=== PATIENT | male | born 1960 | race Caucasian/White ===

== ENCOUNTER 2016-11-06 14:58 | Inpatient (IN) | payer OTHER ==
[~2016-11-06] VITALS: Ht 185.4 cm; Wt 104.5 kg
[2016-11-06] VITALS (7 sets, daily range): BP systolic 126–153; BP diastolic 80–106; PULSE 100–150; RESP 16–18; O2SAT 90–95
[~2016-11-06 14:58] MED LIST: ASPI325T32 PO; FOLI-89 PO; IPRA4AER IH; LEVO750T39 PO
--- NOTE | 2016-11-06 15:36 | ED.REPORT ---
HPI-General Illness Date of Service Nov 06, 2016 ED Provider: Adan Guerrero MD Patient is a 56 year old male with a hx of EtOH abuse who presents to the ED via EMS for EtOH withdrawal. His last drink was at 1700 last night. He drank 1 liter of liquor a day for 2 yrs. Associated symptoms include abdominal pain, vomiting, sweats, and headache. He denies suicidal or homicidal ideation, focal weakness, chest pain, or any other symptoms. He has never had seizures associated with alcohol withdrawal. He has had similar symptoms with withdrawal but never this severe. He was admitted 2 years ago to the hospital for similar symptoms. He does not take any daily medications. Nursing Notes Stated Complaint: ALCOHOL WITHDRAWL Chief Complaint: Substance Abuse Nursing Notes Reviewed: Yes Allergies: Coded Allergies: Cat Dander (Verified Allergy, Severe, anaphylaxix, 01/06/15) Dog Dander (Verified Allergy, Severe, anaphylaxis, 01/06/15) No Known Allergies (Verified Allergy, Unknown, 10/05/15) Scheduled Aspirin Chew (Aspirin Chew) 81 Mg Chew 81 MG PO DAILY Folic Acid/Multivits-Min/Lut (Multi-Vitamin Gummies) 1 Each Tab.chew 1 EACH PO QAM Scheduled PRN Albuterol/Ipratropium (Combivent Respimat Inhal [place]) 120 Spr/4 Gm Inhaler 1-2 PUFF IH QID PRN PRN For Shortness of Breath Nicotine 21 mg/24 hr Patch (Nicotine 21 mg/24 hr Patch) 1 Each Patch.dysq 1 PATCH TRANSDERM DAILY PRN PRN NICOTINE WITHDRAWAL General Time Seen by MD: 15:22 Chief Complaint Other (EtOH Withdrawal ) Hx Obtained From: Patient Arrived By: Ambulance Sudden in Onset?: Yes Location: : Abdomen Quality: Same as prior Associated with: Reports: Headache Context Related History: Reports Drug use/abuse suspected (EtOH ) Similar Sx Previous: Yes Past Medical History Past Medical History Back Fx Pneumonia Arthritis Reports: GERD Past Surgical History Back surgery Left eye surgery Hernia repair Family History Father DM Mother HTN Smoking History Current Every Day Smoker Social History Alcohol Use: >5 per day Drug Use: Denies drug use Other Social History: Local resident Ambulatory Status Independent Review of Systems Full Review of Systems Cardiovascular: Denies: Chest pain GI: Reports: Abdominal pain, Vomiting Skin: Reports Diaphoresis Neurologic: Reports: Headache, Denies: Weakness Psychiatric: Denies: Homicidal ideation, Suicidal ideation Complete sys rev & neg: except as marked. Physical Exam Nursing note and vitals reviewed. Constitutional: Uncomfortable appearing middle-aged male sitting up in bed, mildly diaphoretic. Head: Normocephalic and atraumatic. Mouth/Throat: Oropharynx is clear and moist. No oropharyngeal exudate. Eyes: EOM are normal. Pupils are equal, round, and reactive to light. Neck: Supple, no tracheal deviation. Cardiovascular: Tachycardic, regular rhythm. Equal and intact distal pulses throughout. Pulmonary/Chest: Effort normal and breath sounds normal. No respiratory distress. Abdominal: Soft. No distension. There is no tenderness, rebound, or guarding. Bowel sounds present. Musculoskeletal: Range of motion grossly intact, moving all extremities. No edema or tenderness appreciated. Neurological: AOx3. Grossly nonfocal exam. Strength and sensation intact and equal to bilateral upper and lower extremities. Tremulous. Skin: Warm and moist; mildly diaphoretic. No rashes or pallor appreciated. Psychiatric: Appropriate mood and affect. Behavior appears normal. Good insight. Denies SI and HI. Vital Signs Vital Signs Date Time Temp Pulse Resp B/P Pulse Ox O2 Delivery O2 Flow Rate FiO2 11/06/16 16:36 36.9 119 17 153/95 95 Nasal Cannula 2 11/06/16 15:09 36.8 150 18 126/95 95 Room Air Interpretation & Diagnostics Lab Results Interpretation Result Diagram: 11/06/16 1505 11/06/16 1505 Test 11/06/16 15:05 11/06/16 17:10 11/06/16 18:02 White Blood Count 11.4th/mm3 (3.8-10.1) Red Blood Count 5.50mil/mm3 (4.40-5.80) Hemoglobin 17.9g/dL (13.8-17.2) Hematocrit 51.2% (41.0-50.0) Mean Corpuscular Volume 93.1fL (81-100) Mean Corpuscular Hemoglobin 32.5pg (27.0-35.0) Mean Corpuscular Hemoglobin Concent 35.0% (32.0-37.0) Red Cell Distribution Width 13.2% (12.3-15.4) Platelet Count 269bil/L (150-400) Neutrophils (%) (Auto) 78.4% (40-74) Lymphocytes (%) (Auto) 11.2% (14-46) Monocytes (%) (Auto) 9.8% (4-12) Eosinophils (%) (Auto) 0% (0-5) Basophils (%) (Auto) 0.5% (0-3) Hold Purple Top Tube Received (Received) Hold Blue Top Tube Received (Received) Sodium Level 137mEq/L (134-144) Potassium Level 4.1mEq/L (3.5-5.2) Chloride Level 90mEq/L (97-108) Carbon Dioxide Level 18mmol/L (18-29) Blood Urea Nitrogen 14mg/dL (6-24) Creatinine 0.94mg/dL (0.76-1.27) Estimat Glomerular Filtration Rate 88mL/min (>59) Glucose Level 137mg/dL (60-99) Calcium Level 10.4mg/dL (8.5-10.1) Total Bilirubin 1.5mg/dL (0.0-1.2) Aspartate Amino Transf (AST/SGOT) 36U/L (0-50) Alanine Aminotransferase (ALT/SGPT) 19U/L (0-44) Alkaline Phosphatase 96U/L (25-150) Total Protein 8.1g/dL (6.4-8.4) Albumin 4.8g/dL (3.4-5.0) Hold [place] Top Tube Received (Received) Hold [place] Top Tube Received (Received) Alcohols < 10mg/dL (0-10) Hold Urine Received (Received) ECG Interpretation ECG Interpretation: Sinus tachy rate 114 Left anterior fascicular block Probable anteroseptal infarct, old Time: 17:24 Interpreted by: ED physician Re-Eval/Medical Decision Med Decision/Clinical Course In summary, 56-year-old male with a history of alcohol abuse presenting to the ED for evaluation of tremulousness and symptoms of alcohol withdrawal. Patient tachycardic to the 140s/150s upon arrival. He has had similar symptoms in the past and is denying any other symptoms that are different from his alcohol withdrawal symptoms. Started on CIWA protocol; discussed with Dr. Casey, who recommended the addition of phenobarbital. He did have some improvement here in the ED. Plan admission for further management and evaluation. Time of Eval: 17:30 Re-Evaluation/Progress Note: Discussed plan for admission. Patient understands and agrees with plan. All questions addressed at this time. Consultation : Referral / Consult Name: Matt Casey MD Call Returned at: 17:49 Aviation Safety Technician: Will see patient, Agrees with eval, Agrees with plan, Accepts admit Note: Discussed pt's case. Accepts admit. Counseled Regarding: Diagnosis, Lab results, Need for admission Discharge & Departure Primary Impression: Alcohol withdrawal Complication of substance-induced condition: uncomplicated Qualified Code: F10.230 - Alcohol dependence with withdrawal, uncomplicated Disposition: ADMITTED TO HOSPITAL Discharge Condition All VS Reviewed: Yes Condition: Stable Referrals: OTHER,PHYSICIAN (PCP) Scribe Attestation Portions of this note were transcribed by Bryan Contreras. I, Dr. Guerrero personally performed the history, physical exam and medical decision-making; I reviewed and confirmed the accuracy of the information in the transcribed note. Signed by: Bryan Contreras 11/06/16, 1759 Adan Guerrero MD Nov 06, 2016 15:36 BRYAN CONTRERAS Nov 06, 2016 17:07
[2016-11-06] MEDS ORDERED: Ondansetron 2 mg/mL 2 mL Inj ONE (15:48)
[2016-11-06] MEDS ORDERED: Thiamine Inj 100 MG, Folic Acid Inj 1 MG, Magnesium Sulfate 50% Inj 2 GM, Multivitamins... IV ONE ×10 (16:05→19:35)
[2016-11-06] MEDS ORDERED: 0.9% Sodium Chloride 1,000 ML IV ONE (16:10)
[2016-11-06] MEDS ORDERED: Alum-Mag Hydrox-Simeth 30 mL Suspension PO ONE (17:15)
[2016-11-06 17:32] LABS: BASOPHILS % (AUTO) 0.5 % (0-3); EOSINOPHILS % (AUTO) 0 % (0-5); MONOCYTES % (AUTO) 9.8 % (4-12); Mean Corpuscular Hemoglobin 32.5 pg (27.0-35.0); Mean Corpuscular Volume 93.1 fL (81-100); NEUTROPHILS % (AUTO) 78.4 % (40-74); Platelet Count 269 bil/L (150-400)
[2016-11-06] MEDS ORDERED: ASPI81TA3 PO (17:34)
[2016-11-06] MEDS ORDERED: NICO1PAT16 TRANSDERM (17:35)
[2016-11-06] MEDS ORDERED: PHENobarbital 65 mg/mL Inj IV ONE (17:55)
--- NOTE | 2016-11-06 19:00 | NUR ---
Admission to [facility] Room 2027 Pt arrived to the room on a gurney and immediately got up and walked to the bathroom where pt had diarrhea. Pt was very shaky on admit. Pt's admit CIWA score was 18 and pt received 10mg of diazepam IVP. Pt is hypertensive. Will continue to monitor pt's BPs.
--- NOTE | 2016-11-06 19:14 | PCM.HPMED ---
Subjective Date of Service Nov 06, 2016 Primary Provider: Admitting Physician: Venessa Wilkins DO Primary Care Physician: Tonya Fuentes PA-C Attending Physician: Venessa Wilkins DO Admit Status: From the Emergency Department Chief Complaint: wishes to stop drinking, nausea, vomiting, diarrhea History of Present Illness: 56yoM with past medical history of alcohol dependence admitted for ETOH withdrawal. Patient states that the last drink he had was 11/05 1700. He normally drinks 1L of 100 proof vodka per day and has been doing so for about 3 years time. This morning he began to have nausea, vomiting and diarrhea and was unable to keep anything PO down. Symptoms are also associated with diffuse abdominal cramping. He denies recent sick contacts and no change in diet, no hematemesis , melena, or hematochezia. He feels a bit lightheaded and unsteady on his feet following admission. At this time he wishes to stop drinking because " I don't ever want to feel like I did this morning." Patient does have a history of ETOH withdrawal but denies any history of withdrawal seizure. Review of Systems: complete review of systems obtained. positive as per HPI otherwise negative Allergies Coded Allergies: Cat Dander (Verified Allergy, Severe, anaphylaxix, 01/06/15) Dog Dander (Verified Allergy, Severe, anaphylaxis, 01/06/15) No Known Allergies (Verified Allergy, Unknown, 10/05/15) Home Medications None PMH Back Fx Pneumonia Arthritis GERD Surgical History Back surgery Left eye surgery Hernia repair Family History Father DM Mother HTN Social History Hx Alcohol Use: Yes (1 liter vodka daily) Hx Substance Use: No Smoking Status: Current Every Day Smoker Exam Vital Signs Vital Sign - Last Date Time Temp Pulse Resp B/P Pulse Ox O2 Delivery O2 Flow Rate FiO2 11/06/16 18:50 36.7 105 18 152/97 95 Nasal Cannula 2 Exam General: Alert, Oriented X3, Cooperative, mild Distress Eyes: PERRLA, Scleral Anicteric Mouth: Mouth Normal, Mucous Membranes Moist/[place] Neck: Supple, no Thyromegaly, trachea central. Chest & Lungs: clear to auscultation bilateral, no wheezes, rales, rhonchi, good resp effort Cardiovascular: Normal S1, Normal S2, No Rubs/Gallops, regular rhythm, tachycardic (No JVD, no peripheral edema) Pulses: Radial (present and equal), Dorsalis Pedi (present and equal) Abdomen: Soft, Non-tender, Non-distended, Normoactive bowel tones. Musculoskeletal: Unremarkable. Normal range of motion, no swollen or erythematous joints Extremities: No edema, no cyanosis, no clubbing. Skin: No rashes. Warm and dry, no erythematous areas Neurological: Grossly neurologically intact, has generalized weakness, Normal Speech, Sensation Intact. tremulous Lymphatic: Lymph nodes Cervical and Axillary not palpable. Lab and Diagnostics Result Diagram: 11/06/16 1505 11/06/16 1505 Assessment & Plan 56yoM with past medical history of alcohol dependence admitted for ETOH withdrawal in the setting of nausea, vomiting, and diarrhea. Alcohol withdrawal, acute, POA -[facility] protocol -banana bag -thiamine / multivitamin Nausea, vomiting, diarrhea -denies hematemesis, hematochezia or melena -likely secondary to gastroenteritis -stool PCR ordered and pending Leukocytosis, acute, POA -likely a/w n/v/d - gastroenteritis in the setting of ETOH withdrawal Elevated Glucose, acute, POA -no h/o diabetes -hgbA1c pending Tobacco dependence, chronic, POA -discussed tobacco cessation -nicotine patch available upon request GERD, chronic, POA -currently taking no medications Pain Evaluation: Adequate Pain Control GI Prophylaxis: Not indicated VTE Prophylaxis: Sub-Q Heparin (Unfractionated) Resuscitation Status: CPR: Attempt Resuscitation Venessa Wilkins DO Nov 06, 2016 19:14
[2016-11-06] MEDS: Ondansetron 2 mg/mL 2 mL Inj IVPUSH PRN (20:03)
[2016-11-06] MEDS: 0.9% Sodium Chloride 1,000 ML IV SCH (20:11)
[2016-11-06] MEDS: Alum-Mag Hydrox-Simeth 30 mL Suspension PO PRN (23:07)
[2016-11-07] VITALS (7 sets, daily range): BP systolic 130–157; BP diastolic 83–109; PULSE 86–96; RESP 16–19; O2SAT 94–97
[2016-11-07] MEDS: Ondansetron 2 mg/mL 2 mL Inj IVPUSH PRN (02:12)
[2016-11-07 03:50] LABS: BASOPHILS % (AUTO) 0.6 % (0-3); EOSINOPHILS % (AUTO) 1.1 % (0-5); MONOCYTES % (AUTO) 12.4 % (4-12); Mean Corpuscular Hemoglobin 32.7 pg (27.0-35.0); Mean Corpuscular Volume 95.7 fL (81-100); NEUTROPHILS % (AUTO) 56.1 % (40-74); Platelet Count 180 bil/L (150-400)
[2016-11-07] MEDS: 0.9% Sodium Chloride 1,000 ML IV SCH ×2 (06:17→18:05)
--- NOTE | 2016-11-07 07:15 | NUR ---
CIWA/BPs Pt's CIWA scores were 18,13,18,12. With each CIWA score pt received 10mg of diazepam IVP. Pt's SBP has continued to remain in the 140s-150s. MD was paged and made aware. Pt has no HTN medication and has never been treated for HTN.
[2016-11-07] MEDS: Heparin 5,000 Unit/mL Inj SUBQ SCH ×2 (07:40→16:27)
[2016-11-07] MEDS: Multivit-Miner-Folic Acid-Iron Tablet PO SCH (07:40)
[2016-11-07] MEDS: Alum-Mag Hydrox-Simeth 30 mL Suspension PO PRN (07:40)
--- NOTE | 2016-11-07 17:24 | NUR ---
CIWA/mentation Pt. has been doing very well today with CIWA scores between 6 and 7. Only positive finding are mild-moderate tremors and mild-moderate headache. Will continue to monitor. Pt has become emotional several times today saying that he feels sorry for how he hurt his family with his alcoholism. I sat and talked with him awhile which seemed to help and pt. verbalizes wanting to try several rehabilitation programs upon discharge. Does not want to speak with flat lock operator at this time.
--- NOTE | 2016-11-07 20:19 | PCM.PNMED ---
Subjective Date of Service Nov 07, 2016 Subjective Patient doing well. Overnight C echeverria were 18, 13, 18, 12. On exam this morning the patient says general sense of malaise, some nausea and vomiting 1, and a little bit of abdominal cramping. His labs was benign. Patient was given phenobarbital on admission as currently getting diazepam. Exam Vital Signs Vital Sign - Last Date Time Temp Pulse Resp B/P Pulse Ox O2 Delivery O2 Flow Rate FiO2 11/07/16 16:25 36.9 96 18 130/93 95 Room Air 11/07/16 03:33 1.50 Intake and Output 11/06/16 11/06/16 11/07/16 Cumulative From/Thru 15:00 23:00 07:00 11/06/16 15:09 - 11/07/16 06:15 Intake Total 1000 ml 600 ml 1600 ml Output Total 1750 ml 1750 ml Balance 1000 ml -1150 ml -150 ml Intake Oral 600 ml 600 ml IV Total 1000 ml 1000 ml Output Urine Total 1750 ml 1750 ml # Voids 4 4 # Bowel Movements 2 2 Exam General: Alert, Oriented X3, Cooperative, mild Distress Chest & Lungs: clear to auscultation bilateral, no wheezes, rales, rhonchi, good resp effort Cardiovascular: Regular rate and rhythm Abdomen: Soft, Non-tender, Non-distended, Normoactive bowel tones. Musculoskeletal: Unremarkable. Normal range of motion, no swollen or erythematous joints Extremities: No edema, no cyanosis, no clubbing. Skin: No rashes. Warm and dry, no erythematous areas Neurological: Grossly neurologically intact, has generalized weakness, Normal Speech, Sensation Intact. tremulous IVs and Medications Medications Reviewed: Medications were reviewed in detail Lab and Diagnostics Result Diagram: 11/07/16 0325 11/07/16 0325 Assessment & Plan 56yoM with past medical history of alcohol dependence admitted for ETOH withdrawal in the setting of nausea, vomiting, and diarrhea. Alcohol withdrawal, acute, POA -Alcoholic who reports drinking 1 L of 100 prove positive daily for 3 years; here to quit drinking -Continue [facility] protocol -Continue daily thiamine / multivitamin Nausea, vomiting, diarrhea; present on admission; stable -denies hematemesis, hematochezia or melena -likely secondary to gastroenteritis -stool PCR ordered and pending Elevated Glucose, acute, POA; resolved -no h/o diabetes -hgbA1c pending Tobacco and alcohol dependence, chronic, POA; stable -discussed tobacco cessation -nicotine patch available upon request GERD, chronic, POA; stable -currently taking no medications -Consider famotidine if needed Leukocytosis, acute, POA; resolved -likely a/w n/v/d - gastroenteritis in the setting of ETOH withdrawal Status: Patient will likely need 1-2 days before discharge. Discussed social work needs for this patient for support quitting Pain Evaluation: Adequate Pain Control GI Prophylaxis: Not indicated VTE Prophylaxis: Sub-Q Heparin (Unfractionated) VTE Mechanical Devices: Venous Foot Pump Resuscitation Status: CPR: Attempt Resuscitation Attending Statement The patient was seen and examined together with Dr. Real on 11/07/2016 and I agree with the history, exam and plan as outlined in the note above. . Trever Real DO Nov 07, 2016 20:19 Matt Casey MD Nov 10, 2016 18:29
[2016-11-07] MEDS: Famotidine Inj 20 MG in IV Premix 1 EACH IV SCH (21:15)
[2016-11-08 02:29] VITALS: BP 142/103; PULSE 80; RESP 16; O2SAT 96
[2016-11-08] MEDS: 0.9% Sodium Chloride 1,000 ML IV SCH (02:34)
[2016-11-08] MEDS: Heparin 5,000 Unit/mL Inj SUBQ SCH ×3 (02:34→16:30)
[2016-11-08] MEDS ORDERED: diphenhydrAMINE 25 mg Capsule PO PRN (03:35)
[2016-11-08 03:45] LABS: BASOPHILS % (AUTO) 1.7 % (0-3); MONOCYTES % (AUTO) 9.6 % (4-12); Mean Corpuscular Hemoglobin 32.9 pg (27.0-35.0); Mean Corpuscular Volume 97.1 fL (81-100); NEUTROPHILS % (AUTO) 38.9 % (40-74); Platelet Count 149 bil/L (150-400)
--- NOTE | 2016-11-08 04:17 | NUR ---
CIWAs/Insomnia/BPs/Respiratory Pt's CIWA score at the beginning of the shift was 1. Pt did begin to become restless and when scored later in the shift the pt scored a 4. Pt did not require diazepam due to CIWA scores. Pt did c/o insomnia and requested benadryl for sleep. was notified and put in the order. Pt took the benadryl along with some tylenol to try and get some sleep. Pt's SBP this shift were 130s-140s. Pt is now able to sat in high 90s on RA.
[2016-11-08 08:48] VITALS: BP 141/106; PULSE 87; RESP 16; O2SAT 97
[2016-11-08] MEDS: Famotidine Inj 20 MG in IV Premix 1 EACH IV SCH (09:16)
[2016-11-08] MEDS: Multivit-Miner-Folic Acid-Iron Tablet PO SCH (09:18)
--- NOTE | 2016-11-08 11:09 | NUR ---
Social Work Note: Screen Note Data& Assessment: EMR reviewed. Phil Ham Jr is a 56 year old male admitted on 11/06/2016 for acute alcohol withdrawal. Pt has [employer] insurance coverage and sees Rafat RODRIGUEZ for primary care. Pt lives in [place] in a hotel and is independent at baseline. Pt is currently independent in his room. Pt was seen by ED SW at time of arrival to offer resources for ETOH tx. Pt declined at that time. However, pt is now interested in more information on outpt resources. Per MD order, SW to follow up with pt regarding Substance Use hx and resources. SW to continue to follow. Plan: Anticipated discharge home via POV when medically ready. SW to follow up with pt regarding Substance Use hx and resources. SW to continue to follow. ZANE Major
[2016-11-08] MEDS ORDERED: chlordiazePOXIDE 25 mg Capsule PO SCH (14:30)
--- NOTE | 2016-11-08 15:27 | NUR ---
CIWA/nicotine patch/previous suicide attempt CIWA score= 5 for mild tremors and headache. Pt states that they are normal for him and at his baseline. Pt states that he drinks "a few stiff drinks" to make the headaches go away. MD ordered Librium for tremors and Imitrex for headaches. After administration, pt states headache is gone but that he feels drowsy. MD to determine if DC appropriate for tonight or not. Pt is wearing a nicotine patch on R shoulder. When asked, pt stated that he did try to commit suicide once "in his 40's" by slitting a knife into his hand. He says that since then, he has never wanted to kill himself and that right now he currently does not want to kill himself nor does he have a plan.
--- NOTE | 2016-11-08 16:43 | NUR ---
Social Work note: Continued Discharge Planning/Substance Use Resources PRODUCT DESIGNER met with pt at bedside to discuss resources and ETOH hx. Pt explained he drinks 1L of 100 proof vodka daily. Pt states he is motivated to stop drinking and remain sober and plans to go to sober living. SW provided pt with list of all local [facility]. [place] and [place] locations due not have any openings. SW left a voicemail and request to call back to [place] location. Pt plans to call himself and request to be place on wait list himself as well. Pt provided with detox information if pt requires detox again in the future, crisis line information and outpt tx information. Pt declined PRODUCT DESIGNER offer to arrange outpt tx for him at this time. Pt denies any thoughts of harming himself or others or any suicidal ideation. Pt denies any other needs. SW to continue to follow. Plan: Anticipated discharged home via POV when medically ready. CD resources provided. Pt denies any other needs. SW to continue to follow. ZANE Major
--- NOTE | 2016-11-08 18:27 | PCM.DIMED ---
Rashawn Ferguson DO 11/08/16 1827: Discharge Instructions Date of Service Nov 08, 2016 Dates of Hospitalization Nov 06, 2016 at 18:24 Discharge Diagnosis Discharge Diagnosis EtOH withdrawl Medication Instructions Additional med instructions 1 pill Librium 25 mg (chlordiazepoxide) should be taken only as needed (maximum 3 times in a day) for the next 2-3 days for symptomatic relief of alcohol withdrawl and then stopped. One pill of Maxalt 10 mg should be taken as needed to abort a headache. You may repeat another pill after 2 hours if headache has not improved. Do not exceed more than 3 pills in a 24 hour period. Diet Discharge Diet: Heart Healthy Activity Discharge Activity: No restrictions Call your provider Call your provider for: Shortness of breath, Vomitting, Excessive diarrhea, Other (withdrawl symptoms such as visual or auditory hallucinations, sweating, disorientation, tremor, agitation or anxiety.) Patient Instructions Patient Instructions Follow up with your primary care physician within the next week. Discuss the use of maxalt for headaches. If your alcohol withdrawls symptoms come back such as sweating, tremors, agitation, nausea/vomiting or hallucinations, take librium as needed. Try to call around to different [facility] to find out if there is a vacancy. If you do have a relapse, try to get in touch with crisis respit. Follow-up Provider: Tonya Fuentes PA-C Follow-up with PCP in: 1 week Matt Casey MD 11/10/16 1830: Discharge Instructions Attending's Statement The patient was seen and examined together with Dr. Ferguson on 11/08/2016 and I agree with the history, exam and plan as outlined in the note above. . Rashawn Ferguson DO Nov 08, 2016 18:27 Matt Casey MD Nov 10, 2016 18:30
[2016-11-08] MEDS ORDERED: RIZA10TA26 PO (18:31)
[2016-11-08] MEDS ORDERED: CHLO25CA10 PO (18:31)
--- NOTE | 2016-11-08 19:17 | PCM.DC.MED ---
Discharge Summary Date of Service Nov 08, 2016 Dates of Hospitalization Date of Hospital Admission Nov 06, 2016 at 18:24 Date of Discharge: Nov 08, 2016 Providers: Admitting Physician: Matt Casey MD Primary Care Physician: Tonya Fuentes PA-C Attending Physician: Matt Casey MD Diagnosis at Time of Discharge Diagnosis at Time of Discharge EtOH withdrawl Brief History 56yoM with past medical history of alcohol dependence self-admitted for ETOH withdrawal. Patient states that the last drink he had was 11/05 1700. He normally drinks 1L of 100 proof vodka per day and has been doing so for about 3 years time. Since admission his nausea, vomiting and diarrhea have improved and is now stable. Hospital Course Alcohol withdrawal, acute, POA - Alcoholic who reports drinking 1 L of 100 prove positive daily for 3 years; successfully weened off ETOH. - Received daily thiamine / multivitamin Nausea, vomiting, diarrhea; present on admission; stable -denies hematemesis, hematochezia or melena -likely secondary to gastroenteritis -stool PCR ordered and pending Elevated Glucose, acute, POA; resolved -no h/o diabetes -hgbA1c, follow up with results as an outpatient. Tobacco and alcohol dependence, chronic, POA; stable - discussed tobacco cessatio GERD, chronic, POA; stable -Consider famotidine if needed as an outpatient. Leukocytosis, acute, POA; resolved -likely a/w n/v/d - gastroenteritis in the setting of ETOH withdrawal Exam Vital Signs (Last) Date Time Temp Pulse Resp B/P Pulse Ox O2 Delivery O2 Flow Rate FiO2 11/08/16 08:48 36.9 87 16 141/106 97 Room Air 11/07/16 03:33 1.50 Exam General: Alert, Oriented X3, Cooperative, mild Distress Eyes: PERRLA, Scleral Anicteric Mouth: Mouth Normal, Mucous Membranes Moist/[place] Neck: Supple, no Thyromegaly, trachea central. Chest & Lungs: clear to auscultation bilateral, no wheezes, rales, rhonchi, good resp effort Cardiovascular: Normal S1, Normal S2, No Rubs/Gallops, regular rhythm, tachycardic (No JVD, no peripheral edema) Pulses: Radial (present and equal), Dorsalis Pedi (present and equal) Abdomen: Soft, Non-tender, Non-distended, Normoactive bowel tones. Musculoskeletal: Unremarkable. Normal range of motion, no swollen or erythematous joints Extremities: No edema, no cyanosis, no clubbing. Skin: No rashes. Warm and dry, no erythematous areas Neurological: Grossly neurologically intact, has generalized weakness, Normal Speech, Sensation Intact. tremulous Lymphatic: Lymph nodes Cervical and Axillary not palpable. Test 11/06/16 15:05 11/06/16 17:10 11/06/16 18:02 11/08/16 03:25 Hold Purple Top Tube Received (Received) Hold Blue Top Tube Received (Received) Hold [place] Top Tube Received (Received) Hold [place] Top Tube Received (Received) Alcohols < 10mg/dL (0-10) Hold Urine Received (Received) White Blood Count 4.7th/mm3 (3.8-10.1) Red Blood Count 4.47mil/mm3 (4.40-5.80) Hemoglobin 14.7g/dL (13.8-17.2) Hematocrit 43.4% (41.0-50.0) Mean Corpuscular Volume 97.1fL (81-100) Mean Corpuscular Hemoglobin 32.9pg (27.0-35.0) Mean Corpuscular Hemoglobin Concent 33.9% (32.0-37.0) Red Cell Distribution Width 12.8% (12.3-15.4) Platelet Count 149bil/L (150-400) Neutrophils (%) (Auto) 38.9% (40-74) Lymphocytes (%) (Auto) 46.8% (14-46) Monocytes (%) (Auto) 9.6% (4-12) Eosinophils (%) (Auto) 3.0% (0-5) Basophils (%) (Auto) 1.7% (0-3) Sodium Level 139mEq/L (134-144) Potassium Level 3.8mEq/L (3.5-5.2) Chloride Level 100mEq/L (97-108) Carbon Dioxide Level 25mmol/L (18-29) Blood Urea Nitrogen 9mg/dL (6-24) Creatinine 0.75mg/dL (0.76-1.27) Estimat Glomerular Filtration Rate 114mL/min (>59) Glucose Level 96mg/dL (60-99) Calcium Level 9.2mg/dL (8.5-10.1) Total Bilirubin 0.8mg/dL (0.0-1.2) Aspartate Amino Transf (AST/SGOT) 25U/L (0-50) Alanine Aminotransferase (ALT/SGPT) 14U/L (0-44) Alkaline Phosphatase 68U/L (25-150) Total Protein 6.1g/dL (6.4-8.4) Albumin 3.6g/dL (3.4-5.0) Discharge Medications Discharge Medications Aspirin Chew (Aspirin Chew) 81 Mg Chew 81 MG PO DAILY (Reported) Chlordiazepoxide (Chlordiazepoxide) 25 Mg Capsule 25 MG PO TID Prescribed by: LESLI ALEJANDRA Folic Acid/Multivits-Min/Lut (Multi-Vitamin Gummies) 1 Each Tab.chew 1 EACH PO QAM (Reported) As needed Albuterol/Ipratropium (Combivent Respimat Inhal [place]) 120 Spr/4 Gm Inhaler 1-2 PUFF IH QID PRN PRN For Shortness of Breath (Reported) Nicotine 21 mg/24 hr Patch (Nicotine 21 mg/24 hr Patch) 1 Each Patch.dysq 1 PATCH TRANSDERM DAILY PRN PRN NICOTINE WITHDRAWAL (Reported) Rizatriptan (Maxalt) 10 Mg Tablet 10 MG PO TID PRN PRN Headache Prescribed by: LESLI ALEJANDRA, Additional med instructions 1 pill Librium 25 mg (chlordiazepoxide) should be taken only as needed (maximum 3 times in a day) for the next 2-3 days for symptomatic relief of alcohol withdrawl and then stopped. One pill of Maxalt 10 mg should be taken as needed to abort a headache. You may repeat another pill after 2 hours if headache has not improved. Do not exceed more than 3 pills in a 24 hour period. Followup Plan Follow-up plan Follow up with your primary care physician in 1-2 weeks. Discharge Diet: Heart Healthy Discharge Activity: No restrictions Patient Instructions Follow up with your primary care physician within the next week. Discuss the use of maxalt for headaches. If your alcohol withdrawls symptoms come back such as sweating, tremors, agitation, nausea/vomiting or hallucinations, take librium as needed. [facility]. If you do have a relapse, try to get in touch with crisis resp[facility]. Follow-up Provider: Tonya Fuentes PA-C Follow-up with PCP in: 1 week Time spent Greater than 30 minutes was spent in preparation of discharge with greater than 50% of that time dedicated to patient counseling and coordination of care. . Attending Statement The patient was seen and examined together with Dr. Freeman on 11/08/2016 and I agree with the history, exam and plan as outlined in the note above. . copies to: Tonya Fuentes PA-C, COREY P DO Nov 08, 2016 18:56 Matt Casey MD Nov 10, 2016 18:31
== END 2016-11-08 20:00 | disposition home or self-care (01) | DRG 897 ==
LOC: EDBD 14:58 → SED 14:58 → PCC 18:24
PROVIDERS: ADMIT Internal Medicine; ATTEND Internal Medicine
DX: F10.239 Alcohol dependence with withdrawal, unspecified (principal); F17.210 Nicotine dependence, cigarettes, uncomplicated; K21.9 Gastro-esophageal reflux disease without esophagitis; K52.9 Noninfective gastroenteritis and colitis, unspecified; R73.9 Hyperglycemia, unspecified